=== PATIENT | male | born 1975 | race Caucasian/White ===

== ENCOUNTER 2018-01-26 21:11 | Emergency (ER) | payer BC ==
[2018-01-26 21:30] VITALS: BP 192/112
[2018-01-26] MEDS ORDERED: Metoclopramide 10 MG/2 ML SDV IVPUSH ONE (22:03)
[2018-01-26] MEDS ORDERED: HYDROmorphone 1 MG/ML Syringe IVPUSH ONE (22:03)
[2018-01-26] MEDS ORDERED: Ketorolac 30 MG/ML SDV IVPUSH SCH (22:15)
[2018-01-26] MEDS ORDERED: Sodium Chloride 0.9% 1,000 ML IV SCH (22:15)
--- NOTE | 2018-01-26 22:17 | EDM.PDOC ---
ED HPI GENERAL MEDICAL PROBLEM - General Chief Complaint: Back Pain or Injury Stated Complaint: EXTREME BACK PAIN ISSUES W/ BLADDER Time Seen by Provider: 01/26/18 22:04 Source of Information: Reports: Patient, Family History Limitations: Reports: No Limitations - History of Present Illness INITIAL COMMENTS - FREE TEXT/NARRATIVE: 42-year-old male presents to the ED with acute onset of diffuse right low back pain. About 1500 hrs. today and his become much more intense over the last hour and a half. No position is covered. He cannot stand fully erect due to the pain. No known back injury. States she's been sitting in front of his computer for the last couple of days with nothing that would've aggravated his back. Had trouble getting in and out of the car due to the back pain. Pain also radiates down into the right lower quadrant of the abdomen and groin. He has a history of kidney stones once in the past. He believes he passed some gravel per urethra about October of this year. None of those any blood in his urine. Has a feeling of need to void but is unable to do so. Onset: Today, Sudden Onset Date: 01/26/18 Onset Time: 15:00 (pain became much worse over the last 2 hours. ) Duration: Hour(s): Location: Reports: Back (Right low back pain mild right lower abdominal discomfort.) Quality: Reports: Ache, Sharp (Spasm), Other Severity: Severe (especially with certain movements .9 out of 10) Improves with: Reports: Rest Worsens with: Reports: Movement Context: Denies: Activity, Exercise, Lifting, Sick Contact, Trauma Associated Symptoms: Denies: No Other Symptoms, Confusion, Chest Pain, Cough, cough w sputum, Diaphoresis, Fever/Chills, Headaches, Loss of Appetite, Malaise , Nausea/Vomiting, Shortness of Breath, Syncope Treatments EXPEDITER SERVICE ORDER: Reports: Other (see below) (None.) Right Back Pain Score (Numeric/FACES): 10 - Related Data Allergies Allergy/AdvReac Type Severity Reaction Status Date / Time lisinopril Allergy Other Verified 03/03/15 11:07 bee stings Allergy Swelling Uncoded 03/03/15 11:07 mushrooms Allergy Anaphylactic Uncoded 03/03/15 11:07 Shock Home Meds: Home Meds Fish Oil/Avery-3 Fatty Acids [Fish Oil 1,000 MG] 1 tab PO DAILY 07/05/14 [ History] Gemfibrozil 1 tab PO BID 07/05/14 [History] Losartan/Hydrochlorothiazide [Losartan-HCTZ 100-12.5 MG] 1 tab PO DAILY [History] Multivitamin [Multi Vitamin Daily] 1 tab PO DAILY 07/05/14 [History] Butalb/Acetaminophen/Caffeine [Wbuqwj-Vasqmxdr-Fbza 50-325-40] 1 tab PO Q6HR PRN 01/26/18 [History] Cyclobenzaprine [Flexeril] 1 tab PO DAILY 01/26/18 [History] Magnesium Oxide [Magnesium] 1 tab PO DAILY 01/26/18 [History] Nebivolol [Bystolic] 5 tab PO DAILY 01/26/18 [History] Nortriptyline 2 cap PO DAILY 01/26/18 [History] Avery-3/DHA/Epa/Fish Oil [Avery 3 500 Softgel] 1 cap PO DAILY 01/26/18 [History] SUMAtriptan Succinate [Imitrex] 1 tab PO DAILY 01/26/18 [History] Sertraline [Zoloft] 1 tab PO DAILY 01/26/18 [History] Topiramate [Topamax] 1 tab PO DAILY 01/26/18 [History] Topiramate [Topamax] 1 tab PO DAILY 01/26/18 [History] Ondansetron [Zofran] 4 mg BUCCAL Q6H PRN #6 tab 01/27/18 [Rx] oxyCODONE HCl/Acetaminophen [Percocet 5-325 mg Tablet] 1 - 2 each PO Q4H PRN # 20 tablet 01/27/18 [Rx] Past Medical History Other HEENT History: Dental implants for all teeth Cardiovascular History: Reports: High Cholesterol, Hypertension Genitourinary History: Reports: Renal Calculus Musculoskeletal History: Reports: Fracture Other Musculoskeletal History: L 5th metacaple Neurological History: Reports: Concussion, Migraines (Is on 3 different medications to to provide prevent recurrent migraine headaches.) Psychiatric History: Reports: Anxiety, Depression, PTSD Hematologic History: Reports: Hemochromatosis - Past Surgical History GI Surgical History: Reports: Cholecystectomy Musculoskeletal Surgical History: Reports: Arthroscopic Knee Social & Family History - Family History Cardiac: Reports: Hypertension, [place] : Reports: Renal Disease/Insufficiency - Tobacco Use Smoking Status *Q: Former Smoker Years of Tobacco use: 20 Used Tobacco, but Quit: Yes Month/Year Tobacco Last Used: 06/2014 - Caffeine Use Caffeine Use: Reports: Soda - Recreational Drug Use Recreational Drug Use: No - Living Situation & Occupation Living situation: Reports: Occupation: Employed ED ROS GENERAL - Review of Systems Review Of Systems: See Below Constitutional: Denies: Fever, Chills, Malaise, Weakness, Fatigue, Weight Loss HEENT: Reports: No Symptoms Respiratory: Reports: No Symptoms Cardiovascular: Reports: No Symptoms Endocrine: Reports: No Symptoms GI/Abdominal: Reports: No Symptoms, Abdominal Pain (Does have some lower abdominal pain on the right side. Radiates down to the groin.) : Reports: Other (He has low back pain on the right side inferior to the flank.). Denies: Flank Pain Musculoskeletal: Reports: Back Pain Skin: Reports: No Symptoms (Significant low back pain on the right side.) Neurological: Reports: No Symptoms Psychiatric: Reports: No Symptoms Hematologic/Lymphatic: Reports: No Symptoms Immunologic: Reports: No Symptoms ED EXAM,LOWER BACK PAIN/INJURY - Physical Exam Exam: See Below Exam Limited By: No Limitations General Appearance: Alert, Moderate Distress (In severe pain. He cannot stand erect. He is examined actually in the prone position. He finds this the most comfortable position.) Respiratory/Chest: No Respiratory Distress, Lungs Clear, Normal Breath Sounds, No Accessory Muscle Use Cardiovascular: Normal Peripheral Pulses, Regular Rate, Rhythm, No Edema, No Gallop, No Murmur GI/Abdominal: Normal Bowel Sounds, Soft, Tender. No: Guarding, Rigid (Diffuse tenderness in the right lower quadrant of the abdomen on examination without peritoneal signs), Rebound Back Exam: Muscle Spasm (Marked paraspinal muscle spasm from lumbar 1 to lumbar 5 on the right side. Maximal point of tenderness appears to be lumbar) Extremities: Normal Inspection, Normal Range of Motion, Non-Tender, No Pedal Edema Neurological: Alert, Normal Mood/Affect, Normal Dorsiflexion, CN II-XII Intact, Normal Reflexes, Oriented x 3 Psychiatric: Other Skin Exam: Warm, Dry, Intact, Normal Color, No Rash Course - Vital Signs Last Recorded V/S: Last Vital Signs Temp 36.6 C 01/26/18 21:24 Pulse 72 01/26/18 21:24 Resp 24 H 08/19/18 21:24 BP 192/112 H 01/26/18 21:24 Pulse Ox 100 01/26/18 21:24 - Orders/Labs/Meds Orders: Active Orders 24 hr Category Date Time Status Abdomen Pelvis wo Cont [CT] Stat Exams 01/26/18 23:05 Taken Lumbar Spine wo Cont [CT] Stat Exams 01/26/18 23:05 Taken URINALYSIS W/MICROSCOPIC [UA W/MICROSCOPIC] [URIN] Stat Lab 01/26/18 22:14 Ordered Ketorolac [Toradol] Med 01/26/18 22:15 Active 30 mg IVPUSH ONETIME Sodium Chloride 0.9% [Normal Saline] 1,000 ml Med 01/26/18 22:15 Active IV ASDIRECTED Medication Orders Sodium Chloride (Normal Saline) 1,000 mls @ 150 mls/hr IV ASDIRECTED [facility] Last Admin: 01/26/18 22:27 Dose: 150 mls/hr Ketorolac Tromethamine (Toradol) 30 mg IVPUSH ONETIME [facility] Last Admin: 01/26/18 23:34 Dose: 30 mg Labs: Laboratory Tests 01/26/18 Range/Units 22:14 Urine Color Yellow (Yellow) Urine Appearance Slt cloudy H (Clear) Urine pH 7.0 (5.0-8.0) Ur Specific [place] 1.020 (1.005-1.030) Urine Protein Negative (Negative) Urine Glucose (UA) Negative (Negative) Urine Ketones Negative (Negative) Urine Occult Blood 3+ H (Negative) Urine Nitrite Negative (Negative) Urine Bilirubin Negative (Negative) Urine Urobilinogen 0.2 (0.2-1.0) Ur Leukocyte Esterase Negative (Negative) Urine RBC 10-20 H (0-5) /hpf Urine WBC 0-5 (0-5) /hpf Ur Epithelial Cells 0-5 (0-5) /hpf Urine Bacteria Moderate H (FEW) /hpf Urine Mucus Moderate H (FEW) /hpf Meds: Medications Generic Name Dose Route Start Last Admin Trade Name Freq PRN Reason Stop Dose Admin Sodium Chloride 1,000 mls @ 150 mls/hr 01/26/18 22:15 01/26/18 22:27 Normal Saline IV 150 mls/hr ASDIRECTED [facility] Administration Ketorolac Tromethamine 30 mg 01/26/18 22:15 01/26/18 23:34 Toradol IVPUSH 30 mg ONETIME BETO Administration Discontinued Medications Generic Name Dose Route Start Last Admin Trade Name Mariluz CLINE Reason Stop Dose Admin Hydromorphone HCl 1 mg 01/26/18 22:03 01/26/18 22:27 Dilaudid IVPUSH 01/26/18 22:04 1 mg ONETIME ONE Administration Metoclopramide HCl 10 mg 01/26/18 22:03 01/26/18 22:28 Reglan IVPUSH 01/26/18 22:04 10 mg ONETIME ONE Administration - Radiology Interpretation Free Text/Narrative:: 42-year-old male presents to the ED with acute onset of severe right low back pain. He has a history of kidney stones with one stone passage in the past. States he passed a smaller stone in October of this year. In came on acutely in his low back. He has no reason to have an injury to his lower back. States he cannot stand fully erect. Associated nausea without vomiting. Have some mild right lower abdominal pain rating to the right groin. However on examination he has marked paraspinal muscle spasm in his right lower back from lumbar 1 to lumbar 5. Therefore still difficult to sort out whether this is renal colic versus acute low back pain. Plan urinalysis. Patient will be started on IV fluids normal saline at 150 mils per hour. Given Dilaudid 1 mg IV for pain relief with Reglan 10 mg IV for nausea relief and Toradol 30 mg IV. - Re-Assessments/Exams Free Text/Narrative Re-Assessment/Exam: 01/26/18 23:07 pain is improved but still present. He was able to roll over onto his back now to allow appropriate examination of his abdomen. He does have bowel sounds present in all 4 quadrants. The abdominal wall is firm to palpation. He has tenderness right upper quadrant of the abdomen inferior to the costal margin with a negative Leslie's sign. This may suggest hydronephrosis of his right kidney. He also some some diffuse pain in the right lower quadrant with no peritoneal signs or guarding. Will proceed with CT of the abdomen and pelvis per renal protocol and CT lumbar spine since he has so much spasm on the right side. 01/26/18 23:08 urinalysis shows 3+ red blood cells on the dip and 10-20 RBCs per high power field on the micro-. 01/27/18 00:34 CT of the lumbar spine is been completed. There is a transitional vertebra at the lumbosacral junction. This is designated is an L5 vertebra. The vertebral body height is maintained with no subluxation. Schmorl' s node noted at the superior endplate of L5. There is moderate posterior disc bulge at L4-L5 and smaller posterior disc bulge at the L5-S1 level. Mild bilateral facet hypertrophy and bilateral ligamentum flavum thickening at L3-L4 and L4-L5 levels. No fractures or epidural hematomas noted. Mild spinal canal stenosis at L4-L5 level. No evidence of aortic aneurysm. CT of the abdomen and pelvis confirms a 4.1 mm stone at the UVJ with moderate to severe right-sided hydronephrosis and perinephric stranding. Ureter is dilated to the level of the stone indicating high degree obstruction. There is moderate fatty infiltration of the liver and couldn't increase compared with previous study. Has had a cholecystectomy. He does have a fair amount of stool throughout the colon as well. Plan he is feeling relatively pain free at this time. Plan we'll discharge him home with a urinary strainer. He will use Zofran 4 mg sublingual every 4-6 hours necessary for nausea or vomiting relief. Percocet tabs 5/3/25 milligrams strength one or 2 every 4-6 hours needed for pain relief. Return until the stone has passed. If the stone is not passed in the next 2 weeks he will have to follow-up with urology services. Advised plenty of fluids and no calcium added diet. Of note there are no stones in either kidney at this time to indicate each or problems in the near future Departure - Departure Time of Disposition: 00:37 Disposition: Home, Self-Care 01 Condition: Fair Clinical Impression: Renal colic on right side Degenerative joint disease (DJD) of lumbar spine Qualifiers: Spinal osteoarthritis complication: without myelopathy or radiculopathy Qualified Code(s): M47.816 - Spondylosis without myelopathy or radiculopathy, lumbar region - Discharge Information *PRESCRIPTION DRUG MONITORING PROGRAM REVIEWED*: Not Applicable *COPY OF PRESCRIPTION DRUG MONITORING REPORT IN PATIENT KUSUM: Not Applicable Prescriptions: Ondansetron [Zofran] 4 mg BUCCAL Q6H PRN #6 tab PRN Reason: nausea or vomiting oxyCODONE HCl/Acetaminophen [Percocet 5-325 mg Tablet] 1 - 2 each PO Q4H PRN # 20 tablet PRN Reason: pain relief. Instructions: Kidney Stones, [id number], Back Pain, Adult, [id number] Referrals: Ramiro Ann MD [Primary Care Provider] - Forms: ED Department Discharge, ED Return to Work/School Form Additional Instructions: Evaluation the emergency room today in regards to acute onset of severe Rt lower back pain with mild pain in the left lower abdomen. Examination revealed marked paraspinal muscle spasm on the right side from thoracic 12 to lumbar 5 vertebra. Associated nausea. History of kidney stone once in the past. The urinalysis done did show 3+ blood in the urine and 20-30 red blood cells per high-power field with should only be 0-3. CT scan was done both of the abdomen and pelvis which confirmed a 4.1 mm stone in the lower part of the right ureter. It has about an inch to go before it enters the urinary bladder which would then make you pain-free. There are no other stones in either kidney at this time to cause problems in the near future. CT also demonstrated a fair amount of stool throughout the colon and since she will be on pain medication for kidney stone I would suggest using MiraLAX powder 17 g or 1 scoop daily until you pass the stone to make sure you don't become severely constipated during this illness. CT scan of your lower back done because of the severe paraspinal muscle spasm identified on examination does reveal multilevel degenerative changes in the lumbar spine. He will born with an abnormal appearing vertebra at the very lower portion of your lumbar spine which we call a transitional vertebra. There is moderate disc bulge at the L4-L5 level and small posterior disc bulge at the L5-S1 level. There is mild bilateral arthritis in all of the facet joints. Therefore it is possible that you have to problems at the same time. Treatment is plenty of fluids to help the stone pass. When the pain comes back when the stone starts to move take Zofran 4 mg under the tongue and 2 tablets of Percocet 5/325 mg strength for pain relief. You never know when the stone is going to pass. Strain the urine into a quart jar and nothing by mouth for through the filter until you recognize the stone to have passed. It should feel like a small pebble or rock. If the stone does not pass on its own over the next 2 weeks then you would have to follow-up with urology services. This would be in [place]. - My Orders Last 24 Hours: My Active Orders 01/26/18 22:14 URINALYSIS W/MICROSCOPIC [UA W/MICROSCOPIC] [URIN] Stat 01/26/18 22:15 Ketorolac [Toradol] 30 mg IVPUSH ONETIME Sodium Chloride 0.9% [Normal Saline] 1,000 ml IV ASDIRECTED 01/26/18 23:05 Abdomen Pelvis wo Cont [CT] Stat Lumbar Spine wo Cont [CT] Stat - Assessment/Plan Last 24 Hours: My Active Orders 01/26/18 22:14 URINALYSIS W/MICROSCOPIC [UA W/MICROSCOPIC] [URIN] Stat 01/26/18 22:15 Ketorolac [Toradol] 30 mg IVPUSH ONETIME Sodium Chloride 0.9% [Normal Saline] 1,000 ml IV ASDIRECTED 01/26/18 23:05 Abdomen Pelvis wo Cont [CT] Stat Lumbar Spine wo Cont [CT] Stat
--- NOTE | 2018-01-30 09:21 | CT ---
CT abdomen and pelvis Technique: Multiple axial sections were obtained from above the dome of the diaphragm inferiorly through the pubic symphysis. Intravenous and oral contrast was not utilized. Study has been performed as a ureteral stone protocol. Comparison: Prior CT abdomen and pelvis exam of 01/20/13. Right ureter is prominent in size with surrounding inflammatory change. These findings are caused by a distal right ureteral stone measuring approximately 4 mm. This stone occurs near the UVJ. No other abnormal calcifications are seen along the course of the ureters. No abnormal calcifications are seen within the kidneys. Visualized lung bases show nothing acute. Liver shows fatty infiltration without focal abnormality. Surgical clips seen from prior cholecystectomy. Spleen appears within normal limits. Adrenal glands show no nodule. Pancreas is within normal limits. Aorta shows no aneurysmal dilatation. No retroperitoneal adenopathy or mesenteric abnormalities are seen. Appendix is seen and is felt to be within normal limits. No pelvic mass or adenopathy is seen. Impression: 1. Obstructing calculus within the distal right ureter measuring 4 mm located at the UVJ. 2. Fatty infiltration within the liver and other incidental findings as noted above. Diagnostic code #3 I agree with preliminary report from [facility], finalized at 01/27/18, 12:51 AM Central Time
--- NOTE | 2018-01-30 10:22 | CT ---
CT lumbar spine Technique: Multiple axial sections were obtained from the top of T12 inferiorly through the L5-S1 disc. Findings: Slight posterior disc space narrowing is seen at T12-L1. Mild posterior disc space narrowing is noted at L5-S1. Small disc protrusion is seen within the anterior and superior endplate of L5 which is felt to be chronic. Mild posterior spurring and disc bulging seen at L5-S1. Minimal central canal stenosis is noted at L4-L5. Slight diffuse posterior disc bulge is noted with minimal posterior spurring. No neural foraminal stenosis is seen. No fracture is identified. Mild degenerative change is noted within the L4-L5 apophyseal joints. 4 mm distal right obstructing ureteral stone is again seen. Impression: 1. Degenerative change as noted above. Nothing acute is seen. 2. Obstructing distal right ureteral stone is again seen. Diagnostic code #2 I agree with preliminary report from [facility], finalized at 01/27/18, 1:04 AM Central Time
== END 2018-01-27 01:02 | disposition home or self-care (01) ==
LOC: JD.ED 21:11
DX: N13.2 Hydronephrosis with renal and ureteral calculous obstruction (principal); M47.816 Spondylosis without myelopathy or radiculopathy, lumbar region; I10 Essential (primary) hypertension; Z87.891 Personal history of nicotine dependence; Z91.030 Bee allergy status; Z91.018 Allergy to other foods; Z88.8 Allergy status to other drugs, medicaments and biological substances; Z79.899 Other long term (current) drug therapy; Z90.49 Acquired absence of other specified parts of digestive tract
CPT/HCPCS: 72131; 74176; 81001; 96361; 96374; 96375; 99284; J1170; J1885; J2765; J7040

== ENCOUNTER 2018-01-29 18:34 | Emergency (ER) | payer BC ==
[2018-01-29] MEDS ORDERED: HYDROmorphone 0.5 MG/0.5 ML SYRINGE IVPUSH STA ×2 (19:01→22:45)
[2018-01-29] MEDS ORDERED: Ondansetron 4 MG/2 ML SDV IVPUSH ONE (19:01)
[2018-01-29] MEDS ORDERED: Sodium Chloride 0.9% 1,000 ML IV ONE (19:01)
[2018-01-29] MEDS ORDERED: Tamsulosin 0.4 MG Cap.ER PO ONE (19:12)
[2018-01-29] MEDS ORDERED: Ketorolac 30 MG/ML SDV IVPUSH ONE (19:12)
--- NOTE | 2018-01-29 19:22 | EDM.PDOC ---
ED HPI GENERAL MEDICAL PROBLEM - General Chief Complaint: Flank Pain Stated Complaint: BACK/SIDE/GROIN P Time Seen by Provider: 01/29/18 18:52 Source of Information: Reports: Patient, Family (), Old Records (ED 2017) History Limitations: Reports: No Limitations - History of Present Illness INITIAL COMMENTS - FREE TEXT/NARRATIVE: Medical records indicate that the patient was seen in this ED this past 01/26/2018, for complaint of right lower back pain radiating to his right lower quadrant, along with urinary urgency. A CT scan of the abdomen and pelvis demonstrated a 4.1 mm stone at the right UVJ. The patient was discharged home with a prescription for Percocet 5/325 #20 and Zofran 4 mg ODT #6. The patient now returns to the ED stating that he has continued pain, unchanged from when he was in the ED. He states that he has been taking one Percocet every 4 hours, then 2 at 10 PM, to allow him to sleep. He has 5 remaining tablets. He has not required any Zofran, as he has not had any nausea since leaving the ED. He states that he has been straining his urine, as directed. The patient also states that he passed out while urinating around 10:30 this morning. He states that he found himself on the floor. He is uninjured. The patient's PCP is Dr. Ann. Treatments OPHTHALMIC TECHNOLOGIST: Reports: Other (see below) Other Treatments OPHTHALMIC TECHNOLOGIST: oxycodone 5-325 x 2 tabs Right Flank Pain Score (Numeric/FACES): 10 - Related Data Allergies Allergy/AdvReac Type Severity Reaction Status Date / Time lisinopril Allergy Other Verified 03/03/15 11:07 bee stings Allergy Swelling Uncoded 03/03/15 11:07 mushrooms Allergy Anaphylactic Uncoded 03/03/15 11:07 Shock Home Meds: Home Meds Fish Oil/[place]-3 Fatty Acids [Fish Oil 1,000 MG] 1 tab PO DAILY 07/05/14 [ History] Gemfibrozil 1 tab PO BID 07/05/14 [History] Losartan/Hydrochlorothiazide [Losartan-HCTZ 100-12.5 MG] 1 tab PO DAILY [History] Multivitamin [Multi Vitamin Daily] 1 tab PO DAILY 07/05/14 [History] Butalb/Acetaminophen/Caffeine [Sfojru-Nsmnawpx-Pmfc 50-325-40] 1 tab PO Q6HR PRN 01/26/18 [History] Cyclobenzaprine [Flexeril] 1 tab PO DAILY 01/26/18 [History] Magnesium Oxide [Magnesium] 1 tab PO DAILY 01/26/18 [History] Nebivolol [Bystolic] 5 tab PO DAILY 01/26/18 [History] Nortriptyline 2 cap PO DAILY 01/26/18 [History] [place]-3/DHA/Epa/Fish Oil [[place] 3 500 Softgel] 1 cap PO DAILY 01/26/18 [History] SUMAtriptan Succinate [Imitrex] 1 tab PO DAILY 01/26/18 [History] Sertraline [Zoloft] 1 tab PO DAILY 01/26/18 [History] Topiramate [Topamax] 1 tab PO DAILY 01/26/18 [History] Topiramate [Topamax] 1 tab PO DAILY 01/26/18 [History] Ondansetron [Zofran] 4 mg BUCCAL Q6H PRN #6 tab 01/27/18 [Rx] oxyCODONE HCl/Acetaminophen [Percocet 5-325 mg Tablet] 1 - 2 each PO Q4H PRN # 20 tablet 01/27/18 [Rx] Acetaminophen/oxyCODONE [Percocet 325-5 MG] 1 - 2 tab PO Q6H PRN #15 tab [Rx] Tamsulosin HCl [Flomax] 1 cap PO QPM PRN #5 cap.er.24h 01/29/18 [Rx] Past Medical History Cardiovascular History: Reports: High Cholesterol, Hypertension Genitourinary History: Reports: Renal Calculus Musculoskeletal History: Reports: Fracture (left 5th metacarpal) Neurological History: Reports: Migraines Psychiatric History: Reports: Anxiety, Depression, PTSD Hematologic History: Reports: Hemochromatosis - Past Surgical History HEENT Surgical History: Reports: Oral Surgery (dental implants), Tonsillectomy GI Surgical History: Reports: Cholecystectomy Musculoskeletal Surgical History: Reports: Arthroscopic Knee (right) Social & Family History - Family History Cardiac: Reports: Hypertension, [place] : Reports: Renal Disease/Insufficiency - Tobacco Use Smoking Status *Q: Former Smoker Years of Tobacco use: 22 Packs/Tins Daily: 2 Month/Year Tobacco Last Used: Quit 2014 - Caffeine Use Caffeine Use: Reports: Coffee, Soda - Alcohol Use Alcohol Use History: Yes Date/Time of Last Drink Comment: Quit drinking 2014 - occasionally drank to excess - Recreational Drug Use Recreational Drug Use: No - Living Situation & Occupation Living situation: Reports: , with Spouse, with Family (2 kids) Occupation: Employed (Self-employed) ED ROS GENERAL - Review of Systems Review Of Systems: ROS reveals no pertinent complaints other than HPI. ED EXAM, RENAL/ - Physical Exam Exam: See Below Exam Limited By: No Limitations General Appearance: Alert, WD/WN, Mild Distress (appears uncomfortable) Eye Exam: Bilateral Eye: EOMI, Normal Inspection Ears: Normal External Exam, Hearing Grossly Normal Nose: Normal Inspection, No Blood Throat/Mouth: Normal Inspection, Normal Lips, Normal Voice, No Airway Compromise Head: Atraumatic, Normocephalic Neck: Normal Inspection, Full Range of Motion Respiratory/Chest: No Respiratory Distress, Lungs Clear, Normal Breath Sounds, No Accessory Muscle Use Cardiovascular: Normal Peripheral Pulses, Regular Rate, Rhythm, No Gallop, No JVD, No Murmur, No Rub GI/Abdominal: Normal Bowel Sounds, Soft, No Organomegaly, No Distention, No Abnormal Bruit, No Mass, Tender (right abdomen) (Male) Exam: Deferred Rectal (Males) Exam: Deferred Back Exam: Normal Inspection, Full Range of Motion, CVA Tenderness (R). No: CVA Tenderness (L) Extremities: Normal Inspection, Normal Range of Motion, No Pedal Edema, Normal Capillary Refill Neurological: Alert, Oriented, Normal Cognition, No Motor/Sensory Deficits Psychiatric: Normal Affect Skin Exam: Warm, Dry, Intact, Normal Color, No Rash Course - Vital Signs Last Recorded V/S: Last Vital Signs Temp 36.8 C 01/29/18 18:47 Pulse 64 01/29/18 18:47 Resp 20 01/29/18 18:47 BP 190/116 H 01/29/18 18:47 Pulse Ox 100 01/29/18 18:47 Orthostatic Blood Pressure [ 113/81 Standing] Orthostatic Blood Pressure [ 130/95 Sitting] Orthostatic Blood Pressure [ 129/89 Supine] - Orders/Labs/Meds Orders: Active Orders 24 hr Category Date Time Status Orthostatic Vital Signs [RC] STAT Care 01/29/18 19:00 Active Orthostatic Vital Signs [RC] STAT Care 01/29/18 19:34 Active Orthostatic Vital Signs [RC] STAT Care 01/29/18 20:39 Active Meds: Medications Discontinued Medications Generic Name Dose Route Start Last Admin Trade Name Freq PRN Reason Stop Dose Admin Hydromorphone HCl 1 mg 01/29/18 19:01 01/29/18 19:24 Dilaudid IVPUSH 01/29/18 19:02 1 mg ONETIME STA Administration Hydromorphone HCl 1 mg 01/29/18 22:45 Dilaudid IVPUSH 01/29/18 22:46 ONETIME STA Sodium Chloride 1,000 mls @ 999 mls/hr 01/29/18 19:01 01/29/18 19:25 Normal Saline IV 01/29/18 20:01 999 mls/hr ONETIME ONE Administration Lactated Ringer's 1,000 mls @ 999 mls/hr 01/29/18 20:39 01/29/18 20:46 Ringers, Lactated IV 01/29/18 21:39 999 mls/hr .BOLUS ONE Administration Ketorolac Tromethamine 30 mg 01/29/18 19:12 01/29/18 19:22 Toradol IVPUSH 01/29/18 19:13 30 mg ONETIME ONE Administration Ondansetron HCl 4 mg 01/29/18 19:01 01/29/18 19:25 Zofran IVPUSH 01/29/18 19:02 4 mg ONETIME ONE Administration Tamsulosin HCl 0.4 mg 01/29/18 19:12 01/29/18 19:26 Flomax PO 01/29/18 19:13 0.4 mg ONETIME ONE Administration - Re-Assessments/Exams Free Text/Narrative Re-Assessment/Exam: 01/29/18 19:23 The patient is orthostatic. 1 L NS has already been ordered. We will recheck orthostatics after the IV fluid has infused. 01/29/18 20:40 Following 1 L of NS, the patient is still orthostatic. I have ordered 1 L of LR , and will recheck orthostatics after the IV fluid has infused. 01/29/18 22:45 After a second liter of IV fluid, the patient is no longer orthostatic. I will discharge him home with prescriptions for Flomax and additional Percocet. I will recommend that he take rdtt-mep-holrrxf ibuprofen. I will refer him to Dr. Cash. Departure - Departure Time of Disposition: 22:46 Disposition: Home, Self-Care 01 Condition: Good Clinical Impression: Ureterolithiasis, Syncope - Discharge Information *PRESCRIPTION DRUG MONITORING PROGRAM REVIEWED*: Not Applicable *COPY OF PRESCRIPTION DRUG MONITORING REPORT IN PATIENT KUSUM: Not Applicable Prescriptions: Acetaminophen/oxyCODONE [Percocet 325-5 MG] 1 - 2 tab PO Q6H PRN #15 tab PRN Reason: Pain (Severe 7-10) Tamsulosin HCl [Flomax] 1 cap PO QPM PRN #5 cap.er.24h PRN Reason: Pain Referrals: Alec Cash MD [Ordering Only Provider] - Forms: ED Department Discharge Additional Instructions: You were seen in the emergency room for continued right kidney stone pain. Workup in the ER included positional blood pressure checks, which showed that you were intravascularly depleted. You received 2 L of IV fluid in the ER, and your blood pressures normalized. Take pobr-xje-wldgwqt ibuprofen, 2-3 tablets (400-600 mg) every 8 hours, with food, as needed for pain. You have been given a refill of Percocet. Take 1-2 tablets of Percocet every 6 hours, as needed for pain not relieved by ibuprofen. If you take Percocet, do not drive for 10 hours afterwards. Percocet may cause constipation, so consider taking a stool softener. You may dissolve one tablet of the previously prescribed anti-nausea medicine Zofran on your tongue up to every 8 hours, as needed for nausea/vomiting. Take one tablet of the anti-spasm medicine the Flomax every evening, starting tomorrow evening, , 01/30/2018, as needed for pain. Stay adequately hydrated, and continue to strain all of your urine. If you capture the stone, take it to Dr. Cash for analysis. Follow-up with the Urologist Dr. Alec aCsh at the next available appointment. If any other problems, please do not hesitate to return to the ER. - My Orders Last 24 Hours: My Active Orders 01/29/18 19:00 Orthostatic Vital Signs [RC] STAT 01/29/18 19:34 Orthostatic Vital Signs [RC] STAT 01/29/18 20:39 Orthostatic Vital Signs [RC] STAT - Assessment/Plan Last 24 Hours: My Active Orders 01/29/18 19:00 Orthostatic Vital Signs [RC] STAT 01/29/18 19:34 Orthostatic Vital Signs [RC] STAT 01/29/18 20:39 Orthostatic Vital Signs [RC] STAT
[2018-01-29] MEDS ORDERED: Lactated Ringers 1,000 ML IV ONE (20:39)
[2018-01-29 23:31] VITALS: BP 124/89
== END 2018-01-29 23:30 | disposition home or self-care (01) ==
LOC: JD.ED 18:34
DX: N20.1 Calculus of ureter (principal); R55 Syncope and collapse; I10 Essential (primary) hypertension; E78.00 Pure hypercholesterolemia, unspecified; Z87.891 Personal history of nicotine dependence; Z87.442 Personal history of urinary calculi; Z79.899 Other long term (current) drug therapy
CPT/HCPCS: 96361; 96374; 96375; 96376; 99284; A9270; J1170; J1885; J2405; J7040; J7120

== ENCOUNTER 2020-06-07 23:09 | Emergency (ER) | payer MEDICARE, OTHER ==
[2020-06-07 23:34] VITALS: BP 174/103; PULSE 69
[2020-06-07] MEDS ORDERED: Ibuprofen 600 MG Tab PO ONE (23:55)
[2020-06-07] MEDS ORDERED: Acetaminophen/HYDROcodone 325-5 MG Tab PO ONE (23:55)
--- NOTE | 2020-06-08 00:03 | EDM.PDOC ---
ED HPI GENERAL MEDICAL PROBLEM - General Chief Complaint: Flank Pain Stated Complaint: FLANK PAIN Time Seen by Provider: 06/07/20 23:32 Source of Information: Reports: Patient, Family (on the phone) History Limitations: Reports: No Limitations - History of Present Illness INITIAL COMMENTS - FREE TEXT/NARRATIVE: Mr. Márquez is a very pleasant 44-year-old gentleman who now presents to the ED with bilateral flank pain and gross hematuria since this afternoon. He describes the pain as sharp, stabbing, and throbbing in character. It is constant, but made worse if he is upright. He has not had any associated nausea, vomiting, or fever. The patient states that he was diagnosed with a 7 mm right ureterolith by CT scan on 05/31/2020, ordered by his PCP. At that time, he had been experiencing right flank pain for about 2 weeks. He states that he was subsequently prescribed tamsulosin and told to stay well-hydrated, but not referred to a Urologist. Although the patient has a history of ureterolithiasis, he states that he has never previously seen a Urologist. The patient states that his right flank pain resolved somewhere around 06/02/2020 or 06/03/2020, and remaine d resolved until today. Here in the ED, the patient's initial BP is found to be elevated at 174/103, otherwise, he is hemodynamically stable, afebrile, saturating 98% on room air. Other than his flank pain and today's gross hematuria, the patient denies having a recent fever, chills, sore throat, ear pain, nasal or sinus congestion, cough, dyspnea, chest pain, palpitations, nausea, vomiting, constipation, diarrhea, abdominal pain, urinary symptoms, recent weight gain or weight loss, recent bloody bowel movements or black bowel movements, recent joint aches, headaches, or rashes. The patient's PCP is Dr. Ramiro Ann. He does not recall the name of his Neurologist. He already received an influenza vaccine this season. Bilateral Flank Pain Score (Numeric/FACES): 10 - Related Data Allergies Allergy/AdvReac Type Severity Reaction Status Date / Time lisinopril Allergy Other Verified 06/07/20 23:34 bee stings Allergy Swelling Uncoded 03/03/15 11:07 mushrooms Allergy Anaphylactic Uncoded 09/24/15 11:07 Shock Home Meds: Home Meds Fish Oil/[employer]-3 Fatty Acids [Fish Oil 1,000 MG] 1 tab PO DAILY 07/05/14 [History] Gemfibrozil 1 tab PO BID 07/05/14 [History] Losartan/Hydrochlorothiazide [Losartan-HCTZ 100-12.5 MG] 1 tab PO DAILY 07/05/14 [History] Multivitamin [Multi Vitamin Daily] 1 tab PO DAILY 07/05/14 [History] Butalb/Acetaminophen/Caffeine [Tkjiom-Wuozaqtf-Qtys 50-325-40] 1 tab PO Q6HR PRN 01/26/18 [History] Cyclobenzaprine [Flexeril] 1 tab PO DAILY 01/26/18 [History] Magnesium Oxide [Magnesium] 1 tab PO DAILY 01/26/18 [History] Nebivolol [Bystolic] 5 tab PO DAILY 01/26/18 [History] Nortriptyline 2 cap PO DAILY 01/26/18 [History] [employer]-3/DHA/Epa/Fish Oil [[employer] 3 500 Softgel] 1 cap PO DAILY 01/26/18 [History] SUMAtriptan succinate [Imitrex] 1 tab PO DAILY 01/26/18 [History] Sertraline [Zoloft] 1 tab PO DAILY 01/26/18 [History] Topiramate [Topamax] 1 tab PO DAILY 01/26/18 [History] Topiramate [Topamax] 1 tab PO DAILY 01/26/18 [History] Ondansetron [Zofran] 4 mg BUCCAL Q6H PRN #6 tab 01/27/18 [Rx] oxyCODONE HCl/Acetaminophen [Percocet 5-325 mg Tablet] 1 - 2 each PO Q4H PRN #20 tablet 01/27/18 [Rx] Acetaminophen/oxyCODONE [Percocet 325-5 MG] 1 - 2 tab PO Q6H PRN #15 tab 01/29/18 [Rx] Tamsulosin HCl [Flomax] 1 cap PO QPM PRN #5 cap.er.24h 01/29/18 [Rx] Acetaminophen/HYDROcodone [[place] 325-5 MG] 1 - 2 tab PO Q6H PRN #20 tablet 06/08/20 [Rx] Ondansetron [Zofran ODT] 1 tab PO Q8H PRN #10 tab.dis 06/08/20 [Rx] Tamsulosin [Flomax] 1 cap PO DAILY PRN #10 cap.er 06/08/20 [Rx] Past Medical History Cardiovascular History: Reports: High Cholesterol, Hypertension Genitourinary History: Reports: Renal Calculus Musculoskeletal History: Reports: Fracture (left 5th metacarpal) Neurological History: Reports: Migraines Psychiatric History: Reports: Anxiety, Depression, PTSD Endocrine/Metabolic History: Reports: Diabetes, Type II Hematologic History: Reports: Hemochromatosis - Past Surgical History HEENT Surgical History: Reports: Oral Surgery (dental implants), Tonsillectomy GI Surgical History: Reports: Cholecystectomy (2013) Musculoskeletal Surgical History: Reports: Arthroscopic Knee (right) Social & Family History - Tobacco Use Tobacco Use Status *Q: Current Every Day Tobacco User Years of Tobacco use: 22 Packs/Tins Daily: 1 Packs/Tins Daily Comment: Down from 2 ppd - Caffeine Use Caffeine Use: Reports: Coffee, Soda - Alcohol Use Alcohol Use History: Yes Alcohol Use Frequency: Rarely - Recreational Drug Use Recreational Drug Use: No - Living Situation & Occupation Living situation: Reports: , with Spouse, with Family (2 kids) Occupation: Disabled (migraines) ED ROS GENERAL - Review of Systems Review Of Systems: Comprehensive ROS is negative, except as noted in HPI. ED EXAM, RENAL/ - Physical Exam Exam: See Below Exam Limited By: No Limitations General Appearance: Alert, WD/WN, No Apparent Distress Eye Exam: Bilateral Eye: EOMI, Normal Inspection Ears: Normal External Exam, Hearing Grossly Normal Nose: Normal Inspection Throat/Mouth: Normal Inspection, Normal Lips, Normal Voice, No Airway Compromise Head: Atraumatic, Normocephalic Neck: Normal Inspection, Full Range of Motion Respiratory/Chest: No Respiratory Distress, Lungs Clear, Normal Breath Sounds, No Accessory Muscle Use Cardiovascular: Normal Peripheral Pulses, Regular Rate, Rhythm, No Edema, No Gallop, No JVD, No Murmur, No Rub GI/Abdominal: Normal Bowel Sounds, Soft, No Organomegaly, No Distention, No Abnormal Bruit, No Mass, Tender (Right abdomen only. Nontender to the left.) Back Exam: Normal Inspection, Full Range of Motion, CVA Tenderness (R). No: CVA Tenderness (L) Extremities: Normal Inspection, Normal Range of Motion, No Pedal Edema, Normal Capillary Refill Neurological: Alert, Oriented, Normal Cognition, No Motor/Sensory Deficits Psychiatric: Normal Affect Skin Exam: Warm, Dry, Intact, Normal Color, No Rash Course - Vital Signs Last Recorded V/S: Last Vital Signs Temp 36.6 C 06/07/20 23:31 Pulse 69 06/07/20 23:31 Resp 16 06/07/20 23:31 BP 174/103 H 06/07/20 23:31 Pulse Ox 98 06/07/20 23:31 - Orders/Labs/Meds Orders: Active Orders 24 hr Category Date Time Status Strain Urine [RC] ASDIRECTED Care 06/07/20 23:55 Ordered Meds: Medications Discontinued Medications Generic Name Dose Route Start Last Admin Trade Name Mariluz PRN Reason Stop Dose Admin Hydrocodone Bitart/Acetaminophen 2 tab 06/07/20 23:55 [place] 325-5 Mg PO 06/07/20 23:56 ONETIME ONE Ibuprofen 600 mg 06/07/20 23:55 Motrin PO 06/07/20 23:56 ONETIME ONE - Re-Assessments/Exams Free Text/Narrative Re-Assessment/Exam: 06/07/20 23:57 As above, the patient was diagnosed with a 7 mm right ureterolith on 05/31/2020, after experiencing right flank pain for about 2 weeks. He was prescribed tamsulosin which he has been taking up until today, although he is now out. His pain resolved around 06/02/2020 or 06/03/2020, but is now back, felt bilate rally. He reports gross hematuria, but no nausea or vomiting. He is tender to his right abdomen and he has right CVA tenderness, with no tenderness to his left abdomen or flank. We discussed the option of repeating a CT scan, however, I am satisfied that the stone, while it may have moved a bit, is still present and is responsible for his symptoms, therefore I do not see an indication to repeat a CT scan at this time. A 7 mm stone will not likely pass on its own. I will treat his renal colic with a prescription for [place], Zofran, and a refill of tamsulosin. He will be given a urine strainer. I will refer him to Urology for definitive management. Both the patient and his are satisfied with this approach. Departure - Departure Time of Disposition: 23:59 Disposition: Home, Self-Care 01 Condition: Good Clinical Impression: Ureterolithiasis - Discharge Information *PRESCRIPTION DRUG MONITORING PROGRAM REVIEWED*: Not Applicable *COPY OF PRESCRIPTION DRUG MONITORING REPORT IN PATIENT KUSUM: Not Applicable Prescriptions: Tamsulosin [Flomax] 1 cap PO DAILY PRN #10 cap.er PRN Reason: Pain Acetaminophen/HYDROcodone [[place] 325-5 MG] 1 - 2 tab PO Q6H PRN #20 tablet PRN Reason: Pain (Severe 7-10) Ondansetron [Zofran ODT] 1 tab PO Q8H PRN #10 tab.dis PRN Reason: Nausea/Vomiting Instructions: Kidney Stones, [id number] Referrals: Ramiro Ann MD [Primary Care Provider] - Alec Cash MD [Ordering Only Provider] - Forms: ED Department Discharge Additional Instructions: You were seen in the emergency room after developing bilateral flank pain and visible blood in your urine this afternoon, in the setting of being diagnosed with a 7 mm right kidney stone on 05/31/2020. After consideration, it was felt that a repeat CT scan of your abdomen and pelvis was not indicated. You have been given prescriptions for the opioid pain reliever [place], the anti- spasm medicine tamsulosin (Flomax), and the anti-nausea medicine Zofran. We recommend that you take rfcp-jvn-[id number] ibuprofen, 3 to 4 tablets (600-800 mg) every 8 hours, with food, [id number]. You may take 1 to 2 tablets of [place] up to every 6 hours, as needed for pain not relieved by ibuprofen. If you take [place], do not drive or operate heavy [place] for 12 hours afterwards. [place] may cause constipation, so consider taking a stool softener. Take 1 tablet of tamsulosin every day, starting tomorrow, 06/08/2020. You may dissolve 1 tablet of Zofran on your tongue up to every 8 hours, as needed for nausea/vomiting. Stay adequately hydrated, and strain all of your urine. If, by chance, you do capture a stone, take it to your doctor for analysis. Follow-up with the Urologist Dr. Alec Cash, in [place], at the next available appointment. Make sure that the brokerage clerk understands that you are following up from the ER, and that you have been diagnosed with a kidney stone that is too large to likely pass on its own. If any other problems, please do not hesitate to return to the ER. Sepsis Event Note (ED) - Evaluation Sepsis Screening Result: No Definite Risk - Focused Exam Vital Signs: Vital Signs Temp Pulse Resp BP Pulse Ox 06/07/20 23:31 36.6 C 69 16 174/103 H 98 - My Orders Last 24 Hours: My Active Orders 06/07/20 23:55 Strain Urine [RC] ASDIRECTED - Assessment/Plan Last 24 Hours: My Active Orders 06/07/20 23:55 Strain Urine [RC] ASDIRECTED
== END 2020-06-08 00:25 | disposition home or self-care (01) ==
LOC: JD.ED 23:09
DX: N20.1 Calculus of ureter (principal); I10 Essential (primary) hypertension; G43.909 Migraine, unspecified, not intractable, without status migrainosus; E11.9 Type 2 diabetes mellitus without complications; F17.210 Nicotine dependence, cigarettes, uncomplicated; Z88.8 Allergy status to other drugs, medicaments and biological substances; Z91.030 Bee allergy status; Z91.018 Allergy to other foods; Z79.899 Other long term (current) drug therapy
CPT/HCPCS: 99283; A9270-GY

== ENCOUNTER 2021-06-29 20:24 | Emergency (ER) | payer MEDICARE, OTHER ==
[2021-06-29 20:46] VITALS: BP 127/90; PULSE 91
[2021-06-29] MEDS ORDERED: Ondansetron 4 MG/2 ML SDV IVPUSH ONE (21:01)
[2021-06-29] MEDS ORDERED: Sodium Chloride 0.9% 1,000 ML IV STA (21:01)
[2021-06-29] MEDS ORDERED: Sodium Chloride 0.9% 10 ML Syringe FLUSH PRN (21:01)
[2021-06-29] MEDS ORDERED: diphenhydrAMINE 50 MG/ML SDV IVPUSH ONE (21:01)
[2021-06-29] MEDS ORDERED: HYDROmorphone 0.5 MG/0.5 ML Syringe IVPUSH ONE ×2 (21:01→22:17)
[2021-06-29] MEDS ORDERED: Ketorolac 30 MG/ML SDV IVPUSH ONE (21:31)
== END 2021-06-29 22:37 | disposition home or self-care (01) ==
LOC: JD.ED 20:24
DX: S09.90XA Unspecified injury of head, initial encounter (principal); G43.909 Migraine, unspecified, not intractable, without status migrainosus; I10 Essential (primary) hypertension; E11.9 Type 2 diabetes mellitus without complications; Z88.8 Allergy status to other drugs, medicaments and biological substances; Z91.030 Bee allergy status; Z91.018 Allergy to other foods; Z79.84 Long term (current) use of oral hypoglycemic drugs; Z79.899 Other long term (current) drug therapy; W22.8XXA Striking against or struck by other objects, initial encounter
CPT/HCPCS: 70450; 96374; 96375; 96376; 99283; J1170; J1200; J1885; J2405; J7030

== ENCOUNTER 2022-05-05 15:37 | Emergency (ER) | payer MEDICARE, OTHER ==
[2022-05-05 16:06] VITALS: BP 200/111; PULSE 105
[2022-05-05] MEDS ORDERED: diphenhydrAMINE 50 MG/ML SDV IVPUSH ONE (16:14)
[2022-05-05] MEDS ORDERED: Ketorolac 30 MG/ML SDV IVPUSH ONE (16:14)
[2022-05-05] MEDS ORDERED: Sodium Chloride 0.9% 10 ML Syringe FLUSH PRN (16:14)
[2022-05-05] MEDS ORDERED: Metoclopramide 10 MG/2 ML SDV IVPUSH ONE (16:14)
[2022-05-05] MEDS ORDERED: Sodium Chloride 0.9% 1,000 ML IV ONE (16:15)
[2022-05-05 16:47] LABS: ESTIMATED GFR 83 mL/min (>60)
== END 2022-05-05 17:42 | disposition home or self-care (01) ==
LOC: JD.ED 15:37
DX: G43.109 Migraine with aura, not intractable, without status migrainosus (principal); I10 Essential (primary) hypertension; E11.9 Type 2 diabetes mellitus without complications; Z88.8 Allergy status to other drugs, medicaments and biological substances; Z91.030 Bee allergy status; Z79.899 Other long term (current) drug therapy; Z79.84 Long term (current) use of oral hypoglycemic drugs; Z90.49 Acquired absence of other specified parts of digestive tract
CPT/HCPCS: 36415; 80053; 85025; 96361; 96374; 96375; 99283; J1200; J1885; J2765; J3490; J7030

== ENCOUNTER 2022-12-12 19:28 | Emergency (ER) | payer MEDICARE ==
[2022-12-12] MEDS ORDERED: Ketorolac 30 MG/ML SDV IM ONE (20:06)
[2022-12-12] MEDS ORDERED: Metoclopramide 10 MG/2 ML SDV IM ONE (20:06)
[2022-12-12] MEDS ORDERED: diphenhydrAMINE 50 MG/ML SDV IM ONE (20:06)
[2022-12-13 02:29] VITALS: BP 149/97; PULSE 71
== END 2022-12-12 22:10 | disposition home or self-care (01) ==
LOC: JD.ED 19:28
DX: G43.109 Migraine with aura, not intractable, without status migrainosus (principal); E78.00 Pure hypercholesterolemia, unspecified; I10 Essential (primary) hypertension; E11.9 Type 2 diabetes mellitus without complications; Z91.030 Bee allergy status; Z91.018 Allergy to other foods; Z88.8 Allergy status to other drugs, medicaments and biological substances; Z79.899 Other long term (current) drug therapy; Z79.84 Long term (current) use of oral hypoglycemic drugs
CPT/HCPCS: 96372; 99283; J1200; J1885; J2765

== ENCOUNTER 2025-05-05 16:48 | Emergency (ER) | payer SELFPAY ==
[2025-05-05 17:31] LABS: BASOPHILS ABSOLUTE AUTO 0.1 K/mm3 (0.0-0.2); BASOPHILS PERCENT AUTO 0.8 % (0.0-1.0); EOSINOPHILS ABSOLUTE AUTO 0.1 K/mm3 (0.0-0.4); EOSINOPHILS PERCENT AUTO 0.7 % (0.0-6.0); IMMATURE GRAN ABSOLUTE AUTO 0.02 K/mm3 (0.00-0.05); IMMATURE GRAN PERCENT AUTO 0.2 % (0.0-0.4); LYMPHOCYTES ABSOLUTE AUTO 2.8 K/mm3 (1.0-4.8); LYMPHOCYTES PERCENT AUTO 31.5 % (24.0-44.0); MEAN PLATELET VOLUME 9.5 fl (9.4-12.4); MONOCYTES ABSOLUTE AUTO 0.7 K/mm3 (0.0-0.8); MONOCYTES PERCENT AUTO 7.9 % (0.0-8.0); NEUTROPHILS ABSOLUTE AUTO 5.3 K/mm3 (1.8-7.7); NEUTROPHILS PERCENT AUTO 58.9 % (41.0-71.0); NRBC ABSOLUTE 0.00 (0.00-0.02); NRBC PERCENT 0.0 % (0.0-0.2); PLATELET COUNT,PLT 297 K/mm3 (150-400); RED BLOOD CELL COUNT 5.34 M/mm3 (4.52-5.90); WHITE BLOOD CELL COUNT,WBC 9.01 K/mm3 (3.9-11.3)
[2025-05-05] MEDS ORDERED: Naloxone 0.4 MG/ML SDV IVPUSH PRN (18:02)
[2025-05-05 18:05] LABS: A/G RATIO 1.1 (1-2); ALANINE AMINOTRANSFERASE,ALT 71.0 U/L (16-63); ASPARTATE AMNIOTRANSFERASE,AST 45.0 U/L (15-37); BILIRUBIN TOTAL 0.5 mg/dL (0.2-1.0); BLOOD UREA NITROGEN,BUN 16.0 mg/dL (7-18); CARBON DIOXIDE,CO2 26.0 mEq/L (21-32); CHLORIDE,CL 101.0 mEq/L (98-107); CREATININE 1.3 mg/dL (0.7-1.3); EST CRCL DRUG DOSING (CG) 83.46 mL/min; ESTIMATED GFR 67.0 mL/min (>60); GLUCOSE RANDOM 124.0 mg/dL (70-99); PHOSPHORUS 2.8 mg/dL (2.6-4.7); POTASSIUM,K 3.8 mEq/L (3.5-5.1); PROTEIN TOTAL,TP 9.0 g/dl (6.4-8.2); SODIUM,NA 140.0 mEq/L (136-145); TSH 1.311 uIU/mL (0.358-3.74)
[2025-05-05] MEDS: Sodium Chloride 0.9% 10 ML Syringe FLUSH PRN (18:18)
[2025-05-05] MEDS: Iopamidol 755 Mg/ML 100 ML Bottle IVPUSH ONE (19:24)
[2025-05-05] MEDS: Sodium Chloride 0.9% 10 ML Syringe FLUSH ONE (19:24)
[2025-05-05] MEDS: LORazepam 2 MG/ML SDV IVPUSH ONE (20:04)
[2025-05-05 23:16] VITALS: BP 152/102; PULSE 101
== END 2025-05-05 22:54 | disposition home or self-care (01) ==
LOC: JD.ED 16:48
DX: G43.109 Migraine with aura, not intractable, without status migrainosus (principal); I10 Essential (primary) hypertension; E78.00 Pure hypercholesterolemia, unspecified; E11.9 Type 2 diabetes mellitus without complications; Z90.49 Acquired absence of other specified parts of digestive tract; Z91.030 Bee allergy status; Z88.8 Allergy status to other drugs, medicaments and biological substances; Z91.048 Other nonmedicinal substance allergy status; Z79.84 Long term (current) use of oral hypoglycemic drugs; Z79.899 Other long term (current) drug therapy
CPT/HCPCS: 36415; 70496; 70498; 80053; 83605; 83735; 84100; 84443; 85025; 85652; 86140; 96361; 96374; 96375; 96376; 99284; J1171; J2060; J2765; J7030; Q9967